=== PATIENT | female | born 1990 | race Caucasian/White ===

== ENCOUNTER 2022-05-09 08:26 | Day surgery (SDC) | payer BC, OTHER ==
[2022-05-09] MEDS ORDERED: FENTANYL CITR 100 MCG/2 ML ONE (08:54)
[2022-05-09] MEDS ORDERED: Ringers Lactate 1,000 ML IV ONE (08:54)
[2022-05-09] MEDS ORDERED: propofoL 200 MG/20 ML VIAL IV ONE (08:54)
[2022-05-09] MEDS ORDERED: MIDAZOLAM HCL 2 MG/2 ML INJ ONE (08:54)
[2022-05-09] MEDS ORDERED: ONDANSETRON 4 MG/2 ML VIAL ONE ×2 (08:55→11:46)
[2022-05-09] MEDS ORDERED: dexAMETHasone 10 MG/ML VIAL ONE (08:55)
[2022-05-09] MEDS ORDERED: ROCURONIUM 50 MG/5 ML VIAL IV ONE (08:55)
[2022-05-09] MEDS ORDERED: LIDOCAINE 2% MPF 5 ML VIAL ONE (08:56)
[2022-05-09] MEDS ORDERED: NS 0.9% VIAL 10 ML ONE (09:04)
[2022-05-09] MEDS ORDERED: BUPIVACAINE 0.25% PF 10 ML VIAL ONE (09:15)
[2022-05-09 09:23] LABS: Urine Specific Gravity/Preg >1.030 (1.005-1.030)
[2022-05-09] MEDS: HYDROMORPHONE HCL 1 MG/ML INJ ONE ×2 (10:29→10:41)
[2022-05-09 11:37] VITALS: BP 108/71; TEMP 97; O2SAT 100
[2022-05-09] MEDS ORDERED: ONDANSETRON 4 MG/2 ML VIAL IV ONE (12:28)
--- NOTE | 2022-05-10 00:48 | OP ---
Date of Procedure: 05/09/2022 Surgeon: SONIA TORRE Preoperative Diagnoses: 1.Chronic tonsillitis. 2.Chronic tonsil calculus. Postoperative Diagnoses: 1.Chronic tonsillitis. 2.Chronic tonsil calculus. Procedure: Tonsillectomy. Anesthesia: General endotracheal anesthesia was administered. I also infiltrated approximately 10 m L of 0.25% Marcaine without epinephrine into bilateral tonsillar fossa and soft palate. Specimens: Bilateral tonsils submitted to Pathology for evaluation. Findings: Bilateral inflamed tonsils with evidence of tonsil stones and left tonsil exudate. Complications: None. Disposition: Stable. The patient tolerated the procedure well. Indication For Procedure: Patient is a pleasant 31-year-old female who presented to my outpatient cl in with multiple tonsillar infections and chronic throat pain that she has had for multiple years t hat has been refractory to multiple rounds of antibiotics. These were indications to bring the patie nt to operative suite for the above-mentioned procedure. She understood, all questions were answered . Risks versus benefits, and complications were explained in detail and a consent form was signed, [facility] was placed in the chart. Description Of Procedure: Patient was transferred from the preoperative holding area to the operativ e suite by Department of Anesthesia, placed on the operating table supine, and sedated, and intubated in normal fashion. Table was rotated 90 degrees and a shoulder roll was placed. Head and eyes were covered with sterile blue towels and moist Ray-Jonathan was placed over the upper lip for protection. A McIvor retractor was introduced into the right oral commissure and directed along the endotracheal tu be and suspended from the Curry stand. Tonsils were removed by retracting the superior poles midline with straight Allis clamps and then I dissected through the mucosa down the peritonsillar fascial patsy ne with needlepoint electrocautery on the 20th setting of coagulation. Dissection continued within t he planes whereby the inferior poles were amputated with suction Bovie. Saline irrigation was introd uced into the oral cavity and removed with suction Bovie. A Lavonne retractor was used to retract the s oft palate and uvula anteriorly so that I could visualize the adenoid cavity. There was no adenoid t issue. Hemostasis was achieved with suction Bovie. I then infiltrated approximately 10 mL of 0.25% Marcaine without epinephrine into bilateral tonsillar fossa and soft palate. I then inserted a flexi ble orogastric tube into the esophagus and stomach and all fluid contents were removed. The patient was then de-suspended from the Curry stand. The McIvor retractor was removed. Patient's jaw was chec ked, found to be in proper alignment. The shoulder roll and head turban were then removed and she wa s transferred back to Department of Anesthesia in stable condition, where she was subsequently awaken ed, extubated, and transferred to the postoperative care unit. She will be discharged home on analge sic medication and will follow up in 1 to 2 weeks, or sooner if needed. MAURICE/JOE Voice ID: [id number] Report ID: [id number]
== END 2022-05-09 12:00 | disposition home or self-care (01) ==
LOC: OR 08:26
PROVIDERS: ATTEND Otolaryngology Facial Plastic Surgery
PROC: 0CTPXZZ Resection of Tonsils, External Approach (ICD-10-PCS; principal; 2022-05-09 09:50)
DX: J35.01 Chronic tonsillitis (principal); J35.8 Other chronic diseases of tonsils and adenoids
CPT/HCPCS: 81025; 88304; 42826; J2704; J2001; J2250; J3010; J1100; A4216; J1170; J7120; J2405 ×2